=== PATIENT | female | born 1980 | race Caucasian/White ===

== ENCOUNTER → 2020-07-14 11:40 | Outpatient (CLI) | payer OTHER, SELFPAY ==
--- NOTE | 2020-07-14 11:48 | DI.MG.S_ITS ---
BILATERAL DIGITAL SCREENING MAMMOGRAM 3D/2D WITH CAD: 07/14/2020 CLINICAL: Routine screening. Family history of breast cancer. Comparison is made to exams dated: 02/02/2015 mammogram and 02/02/2015 ultrasound - outside location. There are scattered fibroglandular elements in both breasts. Current study was also evaluated with a Computer Aided Detection (CAD) system. No significant masses, calcifications, or other findings are seen in either breast. There has been no significant interval change. IMPRESSION: NEGATIVE There is no mammographic evidence of malignancy. A 1 year screening mammogram is recommended. This exam was interpreted at Station ID: [id number]. NOTE: For mammograms, a report in lay terms will be sent to the patient. Approximately 15% of breast malignancies will not be visualized mammographically. In the management of a palpable breast mass, a negative mammogram must not discourage biopsy of a clinically suspicious lesion. Electronically Signed By: Grant bell/whit:07/14/2020 12:29:18 letter sent: Normal Exam ACR BI-RADS Category 1: Negative [id number]
--- NOTE | 2020-07-14 11:49 | DI.RAD.S_ITS ---
PROCEDURE: XR HAND LT MIN 3V INDICATIONS: Routine screening/LT HAND PAIN TECHNIQUE: 3 views of the hand(s) acquired. COMPARISON: None. FINDINGS: Bones: No fractures or dislocations. Carpal bones are normally aligned. No suspicious bony lesions. Soft tissues: No suspicious soft tissue calcifications. IMPRESSION: Normal left hand. Dictated by: Charanjit Marquez M.D. on 07/14/2020 at 12:30 Approved by: Charanjit Marquez M.D. on 07/14/2020 at 12:31
== END ==
PROVIDERS: PCP Physician Assistant Medical; Referring Provider Physician Assistant Medical; Visit Provider Physician Assistant Medical
DX: M79.642 Pain in left hand (principal); M65.842 Other synovitis and tenosynovitis, left hand
CPT/HCPCS: 73130; 77063; 77067

== ENCOUNTER → 2024-03-06 15:36 | Outpatient (CLI) | payer OTHER, SELFPAY ==
--- NOTE | 2024-03-06 15:39 | DI.RAD.S_ITS ---
PROCEDURE: XR HIP W PEL IF DONE BALBIR MIN 4V INDICATIONS: PAIN IN LEFT HIP TECHNIQUE: AP pelvis with lateral view(s) of the both hip(s). COMPARISON: None. FINDINGS: Bones: Moderate left and mild right hip arthrosis. No acute displaced fracture or dislocation. Soft tissues: No suspicious calcifications IMPRESSION: Left greater right arthrosis. If there is high concern for further derangement, consider MRI evaluation. Dictated by: Fabio Desai M.D. on 03/06/2024 at 18:53 Approved by: Fabio Desai M.D. on 03/06/2024 at 18:53
--- NOTE | 2024-03-06 15:40 | DI.RAD.S_ITS ---
PROCEDURE: XR LUMBAR SPINE three views INDICATIONS: LOW BACK PAIN TECHNIQUE: Three views of the lumbar spine COMPARISON: None. FINDINGS: Bones: There is very slight leftward spinal curvature. Mild spondylosis. No acute vertebral body height loss or traumatic subluxation. Soft tissues: No suspicious calcifications in IMPRESSION: Mild spondylosis. No acute radiographic abnormality. If there is high concern for further derangement, consider MRI evaluation. Dictated by: Fabio Desai M.D. on 03/06/2024 at 18:54 Approved by: Fabio Desai M.D. on 03/06/2024 at 18:54
== END ==
LOC: RAD 15:38
PROVIDERS: PCP Nurse Practitioner Family; Referring Provider Family Medicine; Visit Provider Family Medicine
DX: M16.0 Bilateral primary osteoarthritis of hip (principal); M47.816 Spondylosis without myelopathy or radiculopathy, lumbar region; M25.552 Pain in left hip; M54.50 Low back pain, unspecified
CPT/HCPCS: 72100; 73522